=== PATIENT | female | born 2000 | race Two or more races ===

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

== ENCOUNTER 2021-03-28 22:03 | Emergency (ER) | payer MEDICAID ==
[~2021-03-28] VITALS: Ht 162.6 cm; Wt 80.7 kg
[2021-03-28] MEDS ORDERED: LORazepam 2MG/ML-1ML VIAL IV ONE (22:45)
[2021-03-28] MEDS ORDERED: SODIUM CHLORIDE 0.9% 1,000 ML IVB ONE (22:45)
[2021-03-28 23:33] LABS: Basophils # (auto) 0.1 10 ^3/uL (0-0.2); Basophils % (auto) 0.7 % (0.0-2.0); Eosinophils # (auto) 0.1 10 ^3/uL (0-0.8); Eosinophils % (auto) 1.1 % (0.0-7.0); Hematocrit 37.1 % (36.0-46.0); Hemoglobin 12.6 g/dL (12.2-16.2); Lymphocytes # (auto) 4.5 10 ^3/uL (0.4-5.4); Lymphocytes % (auto) 42.2 % (10.0-50.0); Mean Corpuscular Hemoglobin 28.9 pg (28.0-32.0); Mean Corpuscular Hgb Conc. 33.9 g/dL (32.0-36.0); Mean Corpuscular Volume 85.3 fL (80.0-100.0); Monocytes # (auto) 1.2 10 ^3/uL (0-1.3); Monocytes % (auto) 10.9 % (0.0-12.0); Neutrophils # (auto) 4.8 10 ^3/uL (1.6-8.6); Neutrophils % (auto) 45.1 % (37.0-80.0); Nucleated Red Blood Cells % 0.1 %; Platelet Count (auto) 349 10^3/uL (140-450); Red Blood Cells 4.35 10^6/uL (4.0-5.20); Red Cell Distribution Width 13.5 % (11.8-14.3); White Blood Cell 10.7 10^3/uL (4.4-10.8)
[2021-03-29 00:03] LABS: INR 1.04 (0.9-1.15); Partial Thromboplastin Time 27.3 sec (23.0-31.2)
[2021-03-29 00:05] LABS: Chloride 110 mmol/L (98-107); Potassium 3.5 mmol/L (3.5-5.1); Sodium 141 mmol/L (136-145)
[2021-03-29 00:08] LABS: Albumin 3.4 g/dL (3.4-5.0); Anion Gap 5 (5-15); BUN/Creatinine Ratio 14.1; Blood Alcohol < 3.0 mg/dL (0-5); Blood Urea Nitrogen 12 mg/dL (7-18); Carbon Dioxide 26 mmol/L (21-32); GFR African American 110 mL/min; GFR Non-African American 91 mL/min; Glucose 83 mg/dL (74-106); Magnesium 2.1 mg/dL (1.6-2.6)
[2021-03-29 00:15] LABS: Alanine Aminotransferase 22 U/L (13-56); Alkaline Phosphatase 52 U/L (45-117); Aspartate Aminotransferase 14 U/L (15-37); Bilirubin, Total 0.2 mg/dL (0.2-1.0); Total Protein 7.4 g/dL (6.4-8.2)
[2021-03-29 00:17] LABS: Alcohol, Urine < 3.0 mg/dL (0-10); Amphetamine Screen, Urine NEGATIVE (NEGATIVE); Barbiturate Scree,Urine NEGATIVE (NEGATIVE); Benzodiazephine Screen, Urine NEGATIVE (NEGATIVE); Cannabinoid Screen, Urine NEGATIVE (NEGATIVE); Cocaine Screen, Urine NEGATIVE (NEGATIVE); Opiate Scree,Urine NEGATIVE (NEGATIVE); Phencyclidine Screen, Urine NEGATIVE (NEGATIVE)
[2021-03-29 02:00] VITALS: BP 120/75
== END 2021-03-29 03:28 | disposition admitted as inpatient to this hospital (09) ==
LOC: ER 22:05
DX: G40.909 Epilepsy, unspecified, not intractable, without status epilepticus (principal); R53.1 Weakness
CPT/HCPCS: 36415; 70450; 80053; 80307; 80320; 82962; 83735; 85025; 85610; 85730; 93005; 96361; 96374; 99285; J2060

== ENCOUNTER 2023-08-04 21:48 | Inpatient (IN) | payer MEDICAID ==
[~2023-08-04] VITALS: Ht 167.6 cm; Wt 81.8 kg
[2023-08-04] MEDS ORDERED: levETIRAcetam 500 MG/5ML INJ IV ONE (21:57)
[2023-08-04] MEDS ORDERED: LORazepam 2MG/ML-1ML VIAL ONE ×2 (21:57→22:04)
[2023-08-04 22:00] VITALS: PULSE 74; RESP 20; O2SAT 98
[2023-08-04] MEDS ORDERED: LORazepam 2MG/ML-1ML VIAL IV ONE (22:15)
[2023-08-04 22:46] LABS: Hematocrit 36.9 % (36.0-46.0); Hemoglobin 12.4 g/dL (12.2-16.2); Mean Corpuscular Hemoglobin 29.9 pg (28.0-32.0); Mean Corpuscular Hgb Conc. 33.7 g/dL (32.0-36.0); Mean Corpuscular Volume 88.9 fL (80.0-100.0); Red Blood Cells 4.15 10^6/uL (4.0-5.20); Red Cell Distribution Width 12.1 % (11.8-14.3); White Blood Cell 6.4 10^3/uL (4.4-10.8)
[2023-08-04 22:47] LABS: Basophils % (manual) 0 (0.0-2.0); Blast Cells 0; Eosinophils % (manual) 0 (0-7); Metamyelocytes % 0; Myelocytes % 0; Promyelocytes % 0; Reactive Lymphocytes 0
[2023-08-04 22:59] LABS: Acetaminophen < 2.0 UG/ML (10.0-20.0); Alanine Aminotransferase 33 U/L (7-40); Albumin 4.2 g/dL (3.2-4.8); Alkaline Phosphatase 56 U/L (46-116); Anion Gap 13 (5-15); Aspartate Aminotransferase 20 U/L (13-40); BUN/Creatinine Ratio 10.4 (10.0-20.0); Blood Alcohol 156.8 mg/dL (<10); Blood Urea Nitrogen 10 mg/dL (9-23); Calcium 8.9 mg/dL (8.7-10.4); Carbon Dioxide 21 mmol/L (20-30); Chloride 108 mmol/L (98-107); Glucose 99 mg/dL (74-106); Lipase 46 U/L (12-53); Magnesium 1.8 mg/dL (1.6-2.6); Sodium 142 mmol/L (136-145)
[2023-08-04 23:00] LABS: Total Protein 7.1 g/dL (5.7-8.2)
[2023-08-04 23:01] LABS: Salicylate < 3.0 mg/dL (2.8-20.0)
[2023-08-04 23:03] LABS: Potassium 2.6 mmol/L (3.5-5.1)
[2023-08-04 23:07] LABS: Bilirubin, Total 0.3 mg/dL (0.2-1.0)
[2023-08-04] MEDS ORDERED: LACTATED RINGER'S 2,000 ML IV ONE (23:15)
[2023-08-04 23:22] LABS: Band Neutrophils % (manual) 1; Lymphocytes % (manual) 51 (10.0-50.0); Monocytes % (manual) 8 (0-12); Platelet Estimate Adequate; RBC Morphology Normal
[2023-08-04] MEDS: POTASSIUM CHL 20MEQ/100ML 100 ML IV SCH (23:53)
[2023-08-05] MEDS ORDERED: HYDROcodone-ACET 5/325MG TAB PO PRN (01:45)
[2023-08-05] MEDS ORDERED: DOCUSATE SOD 100 MG CAP PO PRN (01:45)
[2023-08-05] MEDS ORDERED: ONDANSETRON HCL 4 MG/2 ML VIAL IV PRN (01:45)
[2023-08-05] MEDS ORDERED: ACETAMINOPHEN 325 MG TAB PO PRN (01:45)
[2023-08-05] MEDS ORDERED: LORazepam 2MG/ML-1ML VIAL IV PRN (01:45)
[2023-08-05] MEDS ORDERED: NITROGLYCERIN 0.4 MG SL TAB SL PRN (02:30)
[2023-08-05] MEDS ORDERED: MORPHINE SULFATE INJ 2 MG/ml SYRG IV PRN (02:30)
[2023-08-05] MEDS ORDERED: PANTOPRAZOLE 40 MG/10 ML VIAL INJ IV ONE (03:00)
[2023-08-05 03:37] LABS: Urine Bacteria NONE SEEN /hpf (None Seen); Urine Blood 1+ /uL (Negative); Urine Clarity Clear (Clear); Urine Color Colorless (Yellow); Urine Protein, UAD Negative (Negative); Urine Specific Gravity 1.005 (1.001-1.035); Urine Urobilinogen Normal (Negative); Urine WBC 2 /hpf (0 - 5); Urine pH 7.5 (5.0-8.0)
[2023-08-05 04:27] LABS: Basophils # (auto) 0.2 10 ^3/uL (0-0.2); Basophils % (auto) 2.6 % (0.0-2.0); Eosinophils # (auto) 0.1 10 ^3/uL (0-0.8); Eosinophils % (auto) 0.7 % (0.0-7.0); Hematocrit 36.2 % (36.0-46.0); Hemoglobin 12.1 g/dL (12.2-16.2); Mean Corpuscular Hemoglobin 29.5 pg (28.0-32.0); Mean Corpuscular Hgb Conc. 33.5 g/dL (32.0-36.0); Mean Corpuscular Volume 88.1 fL (80.0-100.0); Monocytes # (auto) 0.5 10 ^3/uL (0-1.3); Monocytes % (auto) 7.6 % (0.0-12.0); Neutrophils # (auto) 3.3 10 ^3/uL (1.6-8.6); Neutrophils % (auto) 47.1 % (37.0-80.0); Red Blood Cells 4.11 10^6/uL (4.0-5.20); Red Cell Distribution Width 12.1 % (11.8-14.3)
[2023-08-05 04:42] LABS: Alanine Aminotransferase 30 U/L (7-40); Albumin 3.9 g/dL (3.2-4.8); Alkaline Phosphatase 53 U/L (46-116); Anion Gap 10 (5-15); Aspartate Aminotransferase 18 U/L (13-40); BUN/Creatinine Ratio 9.4 (10.0-20.0); Blood Urea Nitrogen 8 mg/dL (9-23); Calcium 8.7 mg/dL (8.7-10.4); Carbon Dioxide 25 mmol/L (20-30); Chloride 110 mmol/L (98-107); Glucose 86 mg/dL (74-106); Potassium 3.6 mmol/L (3.5-5.1); Sodium 145 mmol/L (136-145)
[2023-08-05 04:43] LABS: Bilirubin, Total 0.3 mg/dL (0.2-1.0); Total Protein 6.7 g/dL (5.7-8.2)
[2023-08-05] MEDS: POTASSIUM CHL 20MEQ/100ML 100 ML IV SCH (04:58)
[2023-08-05] MEDS ORDERED: SODIUM CHLORIDE 0.9% 1,000 ML IV ONE (05:15)
[2023-08-05] MEDS: SODIUM CHLOR 0.9% PF (SALINE LOCK) 10ML VIAL/SYR IV SCH ×2 (06:05→13:20)
[2023-08-05 10:10] VITALS: TEMP 98.6
[2023-08-05 12:00] VITALS: BP 93/60; PULSE 78; RESP 13; O2SAT 97
[2023-08-05] MEDS ORDERED: LEVE500T40 PO (14:14)
== END 2023-08-06 14:29 | disposition home or self-care (01) | DRG 53 ==
LOC: EDUNIT# 21:48 → EDBD 21:48 → ER 22:01 → TELE 08-05 02:24
PROVIDERS: ADMIT Nurse Practitioner Family; ATTEND Internal Medicine Geriatric Medicine
DX: G40.909 Epilepsy, unspecified, not intractable, without status epilepticus (principal); E87.6 Hypokalemia; F10.229 Alcohol dependence with intoxication, unspecified; F41.9 Anxiety disorder, unspecified; J45.909 Unspecified asthma, uncomplicated; Z79.899 Other long term (current) drug therapy; Z88.0 Allergy status to penicillin
CPT/HCPCS: 36415; 70450; 71045; 80053; 80320; 80329; 81001; 83690; 83735; 83880; 83930; 84443; 84484; 85007; 85025; 85027; 99291; G0378; J3480; J7060